=== PATIENT | female | born 2000 | race Caucasian/White ===

== ENCOUNTER 2022-06-04 11:09 | Emergency (ER) | payer OTHER ==
[~2022-06-04] VITALS: Ht 170.2 cm; Wt 78.2 kg
[2022-06-04 12:10] LABS: BASO # 0.03 K/mm3 (0.02-0.10); EOS # 0.01 K/mm3 (0.04-0.40); EOS % 0.1 % (0.1-4.0); HEMATOCRIT 39.5 % (35.0-45.0); HEMOGLOBIN 13.3 g/dL (12.0-15.0); LYMPH# 0.85 K/mm3 (1.20-3.40); MEAN CELL VOLUME 86 fl (78-95); MEAN CORPUSCULAR HEMOGLOBIN 29 pg (26-32); MEAN CORPUSCULAR HGB CONC 34 g/dL (33-37); MEAN PLATELET VOLUME 9.4 fl (7.4-10.4); MONO # 0.46 K/mm3 (0.10-0.60); NEU # 10.73 K/mm3 (1.40-6.50); PLATELET COUNT 234 K/mm3 (130-400); RED BLOOD COUNT 4.62 M/mm3 (4.10-5.30); RED CELL DISTRIBUTION WIDTH 13.1 % (11.5-14.5); WHITE BLOOD COUNT 12.1 K/mm3 (4.8-10.8)
[2022-06-04 12:20] LABS: ALBUMIN 4.4 g/dL (3.5-5.0)
[2022-06-04 12:21] LABS: POTASSIUM 4.1 mmol/L (3.5-5.1)
[2022-06-04 12:22] LABS: CALCIUM 9.8 mg/dL (8.3-10.5)
[2022-06-04 12:23] LABS: TOTAL PROTEIN 8.4 g/dL (6.4-8.3)
[2022-06-04 12:25] LABS: TOTAL BILIRUBIN 0.6 mg/dL (0.2-1.2)
[2022-06-04] MEDS ORDERED: LORAZEPAM0.5 M1 PO (18:26)
[2022-06-04] MEDS ORDERED: ZOFRAN ODT4 MG PO (18:26)
[2022-06-04] MEDS ORDERED: MECLIZINE PO (18:26)
[2022-06-04 19:34] VITALS: BP 122/65
== END 2022-06-04 18:36 ==
LOC: ED 11:09
PROVIDERS: Family Medicine
DX: H81.10 Benign paroxysmal vertigo, unspecified ear (principal); R11.2 Nausea with vomiting, unspecified; F41.9 Anxiety disorder, unspecified; E86.9 Volume depletion, unspecified; Z28.310 Unvaccinated for COVID-19
CPT/HCPCS: J7030